=== PATIENT | female | born 2000 | race Hispanic/Latino ===

== ENCOUNTER 2025-03-18 09:25 | Emergency (ER) | payer SELFPAY ==
[2025-03-18 09:29] VITALS: BP 127/78
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
[2025-03-18 12:36] VITALS: BP 116/68
[2025-03-18] MEDS: ZOFRAN ODT (ORALLY DISINTEGRATING) 4 MG PO (12:44)
[2025-03-18] MEDS: TYLENOL 1000 MG PO (12:44)
[2025-03-18 12:48] VITALS: BP 116/68; BMI 29.9
== END 2025-03-18 13:10 | disposition home or self-care (01) ==
LOC: EMR 09:25
PROVIDERS: EMERGENCY PHYSICIAN Emergency Medicine
DX: S06.0X0A Concussion without loss of consciousness, initial encounter (principal); R03.0 Elevated blood-pressure reading, without diagnosis of hypertension; Y04.2XXA Assault by strike against or bumped into by another person, initial encounter; Y92.009 Unspecified place in unspecified non-institutional (private) residence as the place of occurrence of the external cause
CPT/HCPCS: 99284; 70450